=== PATIENT | male | born 1970 | race Caucasian/White ===

== ENCOUNTER 2017-08-10 02:20 | Emergency (ER) | payer OTHER ==
[~2017-08-10] VITALS: Ht 193 cm; Wt 104.3 kg
[2017-08-10 03:41] VITALS: BP 152/89
== END 2017-08-10 05:06 | disposition home or self-care (01) ==
LOC: ER 02:22
DX: S63.054A Dislocation of other carpometacarpal joint of right hand, initial encounter (principal); I10 Essential (primary) hypertension; F12.90 Cannabis use, unspecified, uncomplicated; Z88.8 Allergy status to other drugs, medicaments and biological substances; Y00.XXXA Assault by blunt object, initial encounter; Y93.89 Activity, other specified; Y99.8 Other external cause status; Y92.89 Other specified places as the place of occurrence of the external cause
CPT/HCPCS: 29125; 73090; 73130

== ENCOUNTER 2023-10-02 09:04 | Emergency (ER) | payer MEDICAID, OTHER ==
[~2023-10-02] VITALS: Ht 175.3 cm; Wt 113.6 kg
[2023-10-02] MEDS ORDERED: SODIUM BICARBONATE 8.4% INJ 50ML SYRINGE IV ONE (09:05)
[2023-10-02] MEDS ORDERED: EPINEPHrine HCL 1 MG/10 ML SYRG IV ONE (09:05)
[2023-10-02] MEDS ORDERED: CALCIUM CHLOR(10%) 100MG/ML 10ML SYRINGE IV ONE (09:05)
[2023-10-02 10:01] VITALS: PULSE 0; RESP 0
[2023-10-02] MEDS ORDERED: DEXTROSE (50%) 50ML SYRG IV ONE (13:30)
== END 2023-10-02 10:34 ==
LOC: ER 09:04 → EDBD 09:04 → ER 10:34
DX: I46.9 Cardiac arrest, cause unspecified (principal); I12.9 Hypertensive chronic kidney disease with stage 1 through stage 4 chronic kidney disease, or unspecified chronic kidney disease; N18.9 Chronic kidney disease, unspecified; E03.9 Hypothyroidism, unspecified; Z88.8 Allergy status to other drugs, medicaments and biological substances
CPT/HCPCS: 36556; 92950; 99285; J0171